=== PATIENT | male | born 1995 | race Caucasian/White ===

== ENCOUNTER 2022-01-24 08:30 | Outpatient (CLI) | payer BC, SELFPAY ==
--- NOTE | 2022-02-04 16:42 | WPDSLEEPSTUD ---
Sleep Study Date of Study: 01/24/22 Ordering Provider: Reji Melendez, Interpreting Physician: Rae Gomez MD Sleep Study Type: Polysomnogram Height: 1.91 m Weight: 132.449 kg Body Mass Index: 36.5 Neck Circumference (inches): 17.5 [place]: 13 Reason for Sleep Study Hypersomnolence, sleeping 18 hours a day Sleep History Indio Mabry is a 26 year old male with severe hypersomnolence. He has gained a large amount of weight over the last year somewhere between 60 and 100 lb. This may be due to medications. He is using modafinil to help stay awake during the day. He does not feel rested after 11 or 12 hours of sleep. He is on antipsychotics and these medications worsen his daytime sleepiness. His doctor prescribed modafinil but the insurance would not approve it. He wrote on his questionnaire, Antipsychotics make me retarded unless I take modafinil to counteract the severe retarded effect of the antipsychotic. He does not awaken from sleep feeling short of breath, he does not awaken at night with heartburn, belching or coughing. He does not snore nor do others tell him that he snores. He does not have difficulty sleeping with a cold. He does not gasp for breath at night. He occasionally sweats excessively at night. He constantly falls asleep during the day. He does not notice his heart pounding or beating irregularly at night. He rarely falls asleep involuntarily. He does not fall asleep while driving. He does not have loss of muscle tone with strong emotion. He always has daytime difficulties due to his excessive sleepiness. He does not feel paralyzed on waking or falling asleep. He denies having vivid dreamlike scenes upon awakening or falling asleep. He does not feel afraid to go to sleep. He occasionally has nightmares, occasionally remembers his dreams. He does not have racing thoughts. Constantly feels sad or depressed. He does not have anxiety. He does not have muscular tension. He does not notice parts of his body jerking. He does not kick at night. He does not have crawling or aching feelings in his legs or any kind of leg pain at night he does not have morning jaw pain. He does not grind his teeth during sleep. He is not bothered by pain during the day, does not awaken due to pain at night, does not wake up feeling stiff in the morning with sore achy muscles or pain in the neck and spine. He has fatigue, concentration difficulties. He cannot think well. Antipsychotics without modafinil definitely me retarded Normal bedtime is 10:00 p.m. falling asleep within 10-20 minutes waking at least 3-4 times at night to urinate which he attributes to his antipsychotics. He falls asleep immediately when he returns to bed. He takes naps in the afternoon or evening. A short nap is not refreshing. He is usually drowsy in the morning for 3 hours or longer. Habits: Never smoked tobacco. No caffeine, alcohol or recreational drugs. [facility] Past Medical History Medical History Morbid obesity Obstructive sleep apnea Persistent hypersomnia Pneumothorax Schizophrenia Family History Family History Father Bone cancer Unknown Cancer Social History Social History Smoking status: Current every day smoker Tobacco type: cigarettes Alcohol intake: current Medications Home Medications Medication Instructions Recorded Confirmed Type No Home Medications 10/01/21 10/01/21 History Medications: List from Dr Melendez's office visit: Aristada injections 882 mg/ 3.2 ml suspension IM Q 6 weeks modafinil 100 mg daily Topamax 50 mg every night Sleep Procedure This test was performed using the [facility] multiple channel system including EOG, EEG, submental EMG, EKG, nasal and oral airflow using thermistors and nasal pressure sensor
[2022-02-05 17:24] VITALS: BMI 36.5
== END 2022-01-25 06:54 | disposition home or self-care (01) ==
LOC: ANHCSM 08:31
PROVIDERS: PCP Internal Medicine; Visit Provider Psychiatry & Neurology Psychiatry
DX: G47.33 Obstructive sleep apnea (adult) (pediatric) (principal); G47.61 Periodic limb movement disorder
CPT/HCPCS: 95810